=== PATIENT | female | born 1995 | race Two or more races ===

== ENCOUNTER 2016-05-10 20:51 | Emergency (ER) | payer OTHER ==
--- NOTE | 2016-05-10 20:57 | PDOC ---
History of Present Illness - General History Source: Patient Exam Limitations: No Limitations - History of Present Illness Initial Comments: 05/10/16 21:50 The patient is a 21-year-old female (G2, P1, A0) with no significant past medical history, and presents to the emergency department with intermittent vaginal bleeding since two days ago. The patient reports that she is , but is not clear how far along in gestation she is. The patient recalls that her LMP was in November, but her menstruation cycle is irregular. She got a sonogram in January. She reports associated intermittent abdominal pain and intermittent dysuria. The patient denies chest pain, shortness of breath, headache and dizziness. The patient denies fever, chills, nausea, vomit, diarrhea and constipation. The patient denies frequency, urgency and hematuria. LMP: November Allergies: NKDA Social History: Denies toxic habits PCP: Dr. Eleno Medina <Johnna Devine - Last Filed: 05/10/16 21:50> <Dana Strong - Last Filed: 05/10/16 23:21> - General Chief Complaint: Vaginal Bleeding Stated Complaint: VAGINAL BLEEDING Time Seen by Provider: 05/10/16 20:56 Past History <Johnna Devine - Last Filed: 05/10/16 21:50> - Psycho/Social/Smoking Cessation Hx Anxiety: No Suicidal Ideation: No Smoking Status: No Smoking History: Never smoked Number of Cigarettes Smoked Daily: 0 Hx Alcohol Use: No Drug/Substance Use Hx: No <Dana Strong - Last Filed: 05/10/16 23:21> - Past Medical History Allergies/Adverse Reactions: Allergies Allergy/AdvReac Type Severity Reaction Status Date / Time No Known Allergies Allergy Verified 05/10/16 20:59 Home Medications: Ambulatory Orders Vit Calc,Iron,Folic [ Vitamins] 1 each PO DAILY 05/10/16 Review of Systems - Review of Systems Able to Perform ROS?: Yes Comments:: 05/10/16 21:50 CONSTITUTIONAL: Absent: fever, chills, diaphoresis, generalized weakness, malaise, loss of appetite HEENT: Absent: rhinorrhea, nasal congestion, throat pain, throat swelling, difficulty swallowing, mouth swelling, ear pain, eye pain, visual changes CARDIOVASCULAR: Absent: chest pain, syncope, palpitations, irregular heart rate, lightheadedness , peripheral edema RESPIRATORY: Absent: cough, shortness of breath, dyspnea with exertion, orthopnea, wheezing, stridor, hemoptysis GASTROINTESTINAL: Present: (+) abdominal pain Absent: abdominal distension, nausea, vomiting, diarrhea, constipation, melena, hematochezia GENITOURINARY: Present: (+) vaginal bleeding, (+) dysuria Absent: frequency, urgency, hesitancy, hematuria, flank pain, genital pain MUSCULOSKELETAL: Absent: myalgia, arthralgia, joint swelling SKIN: Absent: rash, itching, pallor HEMATOLOGIC/IMMUNOLOGIC: Absent: easy bleeding, easy bruising, lymphadenopathy, frequent infections ENDOCRINE: Absent: unexplained weight gain, unexplained weight loss, heat intolerance, cold intolerance NEUROLOGIC: Absent: headache, focal weakness or paresthesias, dizziness, unsteady gait, seizure, mental status changes, bladder or bowel incontinence PSYCHIATRIC: Absent: anxiety, depression, suicidal or homicidal ideation, hallucinations. <Johnna Devine - Last Filed: 05/10/16 21:50> *Physical Exam - Vital Signs Last Vital Signs Temp Pulse Resp BP Pulse Ox 97 F L 85 18 118/64 99 05/10/16 20:53 05/10/16 20:53 05/10/16 20:53 05/10/16 20:53 05/10/16 20:53 - Physical Exam Comments: 05/10/16 21:51 GENERAL: Well developed, well nourished. Awake and alert. No acute distress. HEENT: Normocephalic, atraumatic. PERRLA, EOMI. No conjunctival pallor. Sclera are non- icteric. Moist mucous membranes. Oropharynx is clear. NECK: Supple. Full ROM. No JVD. Carotid pulses 2+ and symmetric, without bruits. No thyromegaly. No lymphadenopathy. CARDIOVASCULAR: Regular rate and rhythm. No murmurs, rubs, or gallops. Distal pulses are 2+ and symmetric. PULMONARY: No evidence of respiratory distress. Lungs clear to auscultation bilaterally. No wheezing, rales or rhonchi. ABDOMINAL: Soft. Non-tender. Non-distended. No rebound or guarding. No organomegaly. Normoactive bowel sounds. MUSCULOSKELETAL Normal range of motion at all joints. No bony deformities or tenderness. No CVA tenderness. EXTREMITIES: No cyanosis. No clubbing. No edema. No calf tenderness. SKIN: Warm and dry. Normal capillary refill. No rashes. No jaundice. NEUROLOGICAL: Alert, awake, appropriate. Cranial nerves 2-12 intact. No deficits to light touch and temperature in face, upper extremities and lower extremities. No motor deficits in the in face, upper extremities and lower extremities. Normoreflexic in the upper and lower extremities. Normal speech. Toes are down- going bilaterally. Gait is normal without ataxia. PSYCHIATRIC: Cooperative. Good eye contact. Appropriate mood and affect. <Johnna Devine - Last Filed: 05/10/16 21:50> ED Treatment Course - LABORATORY CBC & Chemistry Diagram: 05/10/16 22:00 05/10/16 22:00 <Dana Strong - Last Filed: 05/10/16 23:21> Medical Decision Making - Medical Decision Making 05/10/16 21:58 Pt comes with positive . She had a sono in Jan 2016, cannot recall how old the fetus was then. She gets care and the "[facility]" and states that she has had a couple of episodes of vaginal bleed. Minimal burning on urination on and off. She is and she doesn't know her blood type. Labs will be sent. Rh will be checked. Sono and if she is over 22 weeks gestation she will be sent for monitoring at L+D. 05/10/16 22:45 UA is normal; UCG + Labs normal. RH pending Sono result pending 05/10/16 22:48 Sono initial gestational age is 22 weeks 5 days by CRL. She will be sent for monitoring 05/10/16 23:19 Patient Name: Carmelo Rosen This is a preliminary report by imaging veterinary receptionist Exam: Transabdominal OB sonogram Images: 18 Clinical indication: Threatened . Findings: The cervix measures 3.7 cm in length within normal limits and appears closed the placenta is grade 2 anterior and has a normal appearance. There is a live intrauterine gestation in cephalic orientation with a heart rate of 148 beats per minute and measurements correspond to a gestational age of 22 weeks 3 days. The amniotic fluid appears to be within normal limits. A four-chamber heart is demonstrated. Impression: Live intrauterine gestation of approximately 22 weeks 3 days in cephalic presentation. THIS DOCUMENT HAS BEEN ELECTRONICALLY SIGNED <Dana Strong - Last Filed: 05/10/16 23:21> *DC/Admit/Observation/Transfer - Attestations Scribe Attestion: 05/10/16 21:51 Documentation prepared by Johnna Devine, acting as medical assisting instructor for Dana Strong MD. <Johnna Devine - Last Filed: 05/10/16 21:50> - Discharge Dispostion Admit: No <Dana Strong - Last Filed: 05/10/16 23:21> Diagnosis at time of Disposition: Threatened , 22 weeks gestation of - Discharge Dispostion Condition at time of disposition: Stable - Referrals Referrals: Eleno Medina MD, MD [Primary Care Provider] -
[2016-05-10 21:01] VITALS: BMI 33.6
[2016-05-10 22:14] LABS: BASOPHIL 0.8 % (0-2.0); EOSINOPHIL 2.6 % (0-4.5); MCH 22.2 pg (25.7-33.7); MEAN CELL VOLUME 69.4 fl (80-96); MEAN PLT VOLUME 8.7 fl (7.5-11.1); NEUTROPHILS 60.3 % (42.8-82.8); PLATELET COUNT 296 K/MM3 (134-434); RDW 14.9 % (11.6-15.6); WHITE BLOOD COUNT 12.4 K/mm3 (4.0-10.0)
[2016-05-10 22:17] LABS: URINE APPEARANCE CLEAR; URINE BILIRUBIN NEGATIVE (NEGATIVE); URINE BLOOD NEGATIVE (NEGATIVE); URINE COLOR YELLOW; URINE GLUCOSE (UA) NEGATIVE (NEGATIVE); URINE KETONE NEGATIVE (NEGATIVE); URINE LEUK ESTERASE NEGATIVE (NEGATIVE); URINE NITRITE NEGATIVE (NEGATIVE); URINE PROTEIN NEGATIVE (NEGATIVE); URINE UROBILINOGEN NEGATIVE E.U./dl (0.2-1.0)
[2016-05-10 22:38] LABS: ALBUMIN 3.4 g/dl (3.4-5.0); ALK PHOS 81 U/L (45-117); ANION GAP 7 (8-16); BILIRUBIN,TOTAL 0.2 mg/dL (0.2-1.0); CALCIUM 8.9 mg/dL (8.5-10.1); CO2 27 mmol/L (21-32); CREATININE 0.5 mg/dL (0.55-1.02); GLUCOSE,RANDOM 84 mg/dL (74-106); SGOT/AST 22 U/L (15-37); SGPT/ALT 42 U/L (12-78); TOT PROT 7.5 g/dl (6.4-8.2)
[2016-05-10 22:55] LABS: ANISOCYTOSIS 1+; HYPOCHROMIA 1+; MICROCYTOSIS 1+; PLATELET ESTIMATE ADEQUATE (NORMAL)
[2016-05-11 00:14] VITALS: BP 118/55; PULSE 80; TEMP 98
== END 2016-05-11 00:45 | disposition home or self-care (01) ==
LOC: JER 20:51
DX: O20.0 Threatened abortion (principal); Z3A.22 22 weeks gestation of pregnancy
CPT/HCPCS: 36415; 76801-TC; 80053; 81003; 84702; 85025; 86850; 86900; 86901; 99282-25

== ENCOUNTER 2016-09-02 07:25 | Inpatient (IN) | payer OTHER ==
[2016-09-02] MEDS ORDERED: ELECTROLYTE-148 SOLN 500 ML IV SCH ×2 (08:00→08:30)
[2016-09-02] MEDS ORDERED: CITRIC ACID/SODIUM CITRATE 30 ML UNIT-DOSE CUP PO ONE (08:00)
[2016-09-02 08:58] VITALS: BMI 36.3
[2016-09-02 09:01] LABS: BASOPHIL 0.5 % (0-2.0); EOSINOPHIL 2.3 % (0-4.5); MCH 22.3 pg (25.7-33.7); MCHC 31.9 g/dl (32.0-36.0); MEAN PLT VOLUME 9.1 fl (7.5-11.1); NEUTROPHILS 61.7 % (42.8-82.8); PLATELET COUNT 211 K/MM3 (134-434); RDW 15.2 % (11.6-15.6); WHITE BLOOD COUNT 8.9 K/mm3 (4.0-10.0)
[2016-09-02 09:14] LABS: INR 0.98 (0.82-1.09); PROTHROMBIN TIME (PATIENT) 10.8 SEC (9.98-11.88)
[2016-09-02 09:17] LABS: ACTIVATED PTT 25.6 SECONDS (26.9-34.4)
[2016-09-02 09:23] LABS: ANION GAP 8 (8-16); CALCIUM 8.6 mg/dL (8.5-10.1); CO2 25 mmol/L (21-32); CREATININE 0.5 mg/dL (0.55-1.02); GLUCOSE,RANDOM 90 mg/dL (74-106)
[2016-09-02] MEDS ORDERED: FENTANYL/BUPIVACAINE/NS/PF - PCEA - 50 ML DISP.SYRIN EP SCH (09:45)
[2016-09-02] MEDS ORDERED: ELECTROLYTE-148 SOLN 1,000 ML IV SCH (10:00)
--- NOTE | 2016-09-02 10:06 | HP ---
Past Medical History - Admission Chief Complaint: Labor pain History of Present Illness: 21 yo @ 39 weeks gestation, admitted for labor pain. She denies any vaginal bleeding nor rupture of membrane. Upon admission, she was 4cm dilated. History Source: Patient Limitations to Obtaining History: No Limitations - Past Medical History ...: 2 ...Para: 1 ...Term: 1 ...: 0 ...Spon : 0 ...Induced : 0 ...Multiple Gestation: 0 ...EDC by Sono: 09/10/16 - Past Surgical History Past Surgical History: Yes: None Hx Myomectomy: No Hx Transabdominal Cerclage: No - Smoking History Smoking history: Never smoked Have you smoked in the past 12 months: No Aproximately how many cigarettes per day: 0 - Alcohol/Substance Use Hx Alcohol Use: No - Social History History of Recent Travel: No Home Medications - Allergies Allergies/Adverse Reactions: Allergies Allergy/AdvReac Type Severity Reaction Status Date / Time No Known Allergies Allergy Verified 05/10/16 20:59 - Home Medications Home Medications: Ambulatory Orders Vit Calc,Iron,Folic [ Vitamins] 1 each PO DAILY 05/10/16 Ferrous Sulfate [Feosol] 325 mg PO BID 09/02/16 Review of Systems - Review of Systems Constitutional: reports: No Symptoms Eyes: reports: No Symptoms HENT: reports: No Symptoms Neck: reports: No Symptoms Cardiovascular: reports: No Symptoms Respiratory: reports: No Symptoms Gastrointestinal: reports: No Symptoms Genitourinary: reports: Pain Breasts: reports: No Symptoms Reported Musculoskeletal: reports: No Symptoms Integumentary: reports: No Symptoms Neurological: reports: No Symptoms Endocrine: reports: No Symptoms Hematology/Lymphatic: reports: No Symptoms Psychiatric: reports: No Symptoms Pain Intensity: 8 Physical Exam - Maternity Vital Signs: Vital Signs Temperature 97.5 F L 09/02/16 08:43 Pulse Rate 89 09/02/16 08:43 Respiratory Rate 09/02/16 08:43 Blood Pressure 122/64 09/02/16 08:43 O2 Sat by Pulse Oximetry (%) Constitutional: Yes: Well Nourished Eyes: Yes: Conjunctiva Clear HENT: Yes: Atraumatic Neck: Yes: Supple Cardiovascular: Yes: Regular Rate and Rhythm Lungs: Clear to auscultation Breast(s): Yes: WNL - Abdominal Exam/OB Number of Fetuses: Single Presentation: Vertex - Vaginal Exam/OB Station: -2 - Physical Exam ...Motor Strength: WNL Psychiatric: Yes: Alert, Oriented - Labs Lab Results: CBC, BMP 09/02/16 08:40 09/02/16 08:40 Problem List - Problems (1) Pain during labor Code(s): O99.89 - OTH DISEASES AND CONDITIONS COMPL PREG/CHLDBRTH R52 - PAIN, UNSPECIFIED Assessment/Plan Active labor Admit to L&D Analgesia as needed Anticipate
[2016-09-02] MEDS ORDERED: BENZOCAINE 20% 57 GM BOTTLE TP PRN (12:12)
[2016-09-02] MEDS ORDERED: ACETAMINOPHEN 325 MG TABLET (FP) PO PRN (12:12)
[2016-09-02] MEDS ORDERED: BENZOCAINE 28 GM HEMORRHOIDAL OINTMENT TP PRN (12:12)
[2016-09-02] MEDS ORDERED: METHYLERGONOVINE MALEATE 0.2 MG/1 ML AMP IM PRN (12:12)
[2016-09-02] MEDS ORDERED: IBUPROFEN 600 MG TABLET (FP) PO PRN (12:12)
[2016-09-02] MEDS ORDERED: BISACODYL 10 MG SUPP.RECT RC PRN (12:12)
[2016-09-02] MEDS ORDERED: WITCH HAZEL 50% (TUCKS) 40 PAD/JAR PAD TP PRN (12:12)
[2016-09-02] MEDS ORDERED: D5W-LR W/ 20 UNITS OXYTOCIN 1,000 ML IV SCH (12:15)
--- NOTE | 2016-09-02 12:19 | PN ---
Delivery - Delivery Vaginal Delivery: Spontaneous Type of Anesthesia: Epidural Episiotomy/Laceration: None EBL (cc): 250 Delivery, Single - Feeding Plan Initial Plan: Exclusive throughout hospitalization Remarks - Remarks Remarks: Normal spontaneous vaginal delivery of a live infant boy over intact perineum. Nose / Oropharynx suctioned @ perineum. Nuchal cord x 1 released, clamped and cut. Placenta expelled spontaneously intact. Mother in stable condition
[2016-09-02] MEDS: FERROUS SO4 325 MG TABLET (FP) PO SCH (17:35)
--- NOTE | 2016-09-03 05:32 | PN ---
Post Progress Note - Subjective Subjective: cramps Post Day: 1 Type of Delivery: Vital Signs: Vital Signs Temperature 98.2 F 09/03/16 01:39 Pulse Rate 70 09/03/16 01:39 Respiratory Rate 18 09/03/16 01:39 Blood Pressure 120/52 09/03/16 01:39 O2 Sat by Pulse Oximetry (%) 100 09/02/16 10:40 Breast Exam: Yes: Soft, Other (BF ). No: Engorged Uterus: Yes: Fundus Firm, Fundus below umbilicus, Non-tender Lochia: Yes: Rubra Lochia, amount: Moderate Extremities: Yes: Calves non-tender Perineum: Yes: Intact Activity: Ambulating - Labs Labs: CBC WBC 8.9 K/mm3 (4.0-10.0) 09/02/16 08:40 RBC 4.91 M/mm3 (3.60-5.2) 09/02/16 08:40 Hgb 11.0 GM/dL (10.7-15.3) 09/02/16 08:40 Hct 34.4 % (32.4-45.2) 09/02/16 08:40 MCV 70.0 fl (80-96) L 09/02/16 08:40 MCHC 31.9 g/dl (32.0-36.0) L 09/02/16 08:40 RDW 15.2 % (11.6-15.6) 09/02/16 08:40 Plt Count 211 K/MM3 (134-434) D 09/02/16 08:40 MPV 9.1 fl (7.5-11.1) 09/02/16 08:40 Neutrophils % 61.7 % (42.8-82.8) 09/02/16 08:40 Lymphocytes % 27.3 % (8-40) 09/02/16 08:40 Monocytes % 8.2 % (3.8-10.2) 09/02/16 08:40 Eosinophils % 2.3 % (0-4.5) 09/02/16 08:40 Basophils % 0.5 % (0-2.0) 09/02/16 08:40 Assessment/Plan stable repeat cbc today discharge tomorrow.
[2016-09-03] MEDS: FERROUS SO4 325 MG TABLET (FP) PO SCH ×3 (07:55→17:15)
[2016-09-03 08:11] LABS: BASOPHIL 0.6 % (0-2.0); EOSINOPHIL 1.4 % (0-4.5); MCH 22.3 pg (25.7-33.7); MCHC 31.7 g/dl (32.0-36.0); MEAN CELL VOLUME 70.2 fl (80-96); MEAN PLT VOLUME 9.7 fl (7.5-11.1); NEUTROPHILS 70.8 % (42.8-82.8); PLATELET COUNT 198 K/MM3 (134-434); RDW 15.2 % (11.6-15.6); WHITE BLOOD COUNT 13.7 K/mm3 (4.0-10.0)
[2016-09-03] MEDS: PRENATAL VITAMINS W/ FOLIC ACID TABLET (FP) PO SCH (09:01)
[2016-09-03] MEDS ORDERED: DIPHTH,PERTUSS(ACELL),TET 0.5 ML DISP.SYRIN IM ONE (11:00)
[2016-09-03] MEDS ORDERED: SENNOSIDES/DOCUSATE COMBO (SENNA PLUS) TABLET (UD) PO PRN (22:00)
[2016-09-04] MEDS: FERROUS SO4 325 MG TABLET (FP) PO SCH (09:32)
[2016-09-04] MEDS: PRENATAL VITAMINS W/ FOLIC ACID TABLET (FP) PO SCH (09:32)
[2016-09-04 10:03] VITALS: BP 112/67; PULSE 60; TEMP 97.9
== END 2016-09-04 10:35 | disposition home or self-care (01) | DRG 560 ==
LOC: JDEL 07:25 → JLDR 08:00 → J3W 14:29
PROVIDERS: ADMIT Obstetrics & Gynecology; ATTEND Obstetrics & Gynecology
PROC: 10E0XZZ Delivery of Products of Conception, External Approach (ICD-10-PCS; principal; 2016-09-02)
DX: O80 Encounter for full-term uncomplicated delivery (principal); Z3A.39 39 weeks gestation of pregnancy; Z37.0 Single live birth
CPT/HCPCS: 36415; 59409; 80048; 85025; 85610; 85730; 86593; 86850; 86900; 86901; 90715